=== PATIENT | male | born 1960 | race Caucasian/White ===

== ENCOUNTER → 2018-02-05 | Outpatient (CLI) | payer OTHER | END | disposition home or self-care (01) | LOC: SURG 09:32 | PROVIDERS: ATTEND Anesthesiology Pain Medicine | DX: M47.892 Other spondylosis, cervical region (principal) | CPT/HCPCS: 99214 ==

== ENCOUNTER → 2018-04-02 | Outpatient (CLI) | payer OTHER ==
[~2018-04-02] MED LIST: BUPIVACAINE MPF 0.25% 30 ML VIAL. ONE; LIDOCAINE 1% PF 30 ML VIAL. ONE
== END | disposition home or self-care (01) ==
LOC: SURG 08:31
PROVIDERS: ATTEND Anesthesiology Pain Medicine
DX: M47.812 Spondylosis without myelopathy or radiculopathy, cervical region (principal); I10 Essential (primary) hypertension; M19.90 Unspecified osteoarthritis, unspecified site; G47.30 Sleep apnea, unspecified; Z87.01 Personal history of pneumonia (recurrent); Z90.49 Acquired absence of other specified parts of digestive tract; Z98.890 Other specified postprocedural states; Z79.899 Other long term (current) drug therapy
CPT/HCPCS: 64490; 64491; 64492; J2001; J3490

== ENCOUNTER → 2020-09-26 | Day surgery (SDC) | payer OTHER ==
[~2020-09-26] MED LIST changes: +DEXAMETHASONE SOD PHOS 10 MG/ML VIAL. ONE; +DEXAMETHASONE SOD PHOS 4 MG/ML VIAL. ONE; +LIDOCAINE 1% Multi-Dose 20 ML VIAL. ONE
[2020-09-26 12:55] VITALS: BP 155/92
== END | disposition home or self-care (01) ==
LOC: SURG 12:05
PROVIDERS: ATTEND Anesthesiology
DX: M47.814 Spondylosis without myelopathy or radiculopathy, thoracic region (principal); M12.88 Other specific arthropathies, not elsewhere classified, other specified site; G47.30 Sleep apnea, unspecified; I10 Essential (primary) hypertension; M79.10 Myalgia, unspecified site; Z87.01 Personal history of pneumonia (recurrent); Z98.890 Other specified postprocedural states; Z90.49 Acquired absence of other specified parts of digestive tract
CPT/HCPCS: 64490; 64491; J1100; J3490

== ENCOUNTER → 2021-07-11 | Day surgery (SDC) | payer OTHER ==
[2021-07-11 11:08] VITALS: BP 152/81
== END | disposition home or self-care (01) ==
LOC: SURG 10:57
PROVIDERS: ATTEND Anesthesiology
DX: M47.812 Spondylosis without myelopathy or radiculopathy, cervical region (principal); G47.30 Sleep apnea, unspecified; I10 Essential (primary) hypertension; M19.90 Unspecified osteoarthritis, unspecified site; M17.10 Unilateral primary osteoarthritis, unspecified knee; M47.814 Spondylosis without myelopathy or radiculopathy, thoracic region; M79.10 Myalgia, unspecified site; Z87.01 Personal history of pneumonia (recurrent); Z79.899 Other long term (current) drug therapy; Z98.890 Other specified postprocedural states
CPT/HCPCS: 99204; G0463

== ENCOUNTER → 2021-09-25 | Day surgery (SDC) | payer OTHER ==
[~2021-09-25] MED LIST changes: +BUPIVACAINE MPF 0.25% 10 ML VIAL. ONE; -BUPIVACAINE MPF 0.25% 30 ML VIAL. ONE; -DEXAMETHASONE SOD PHOS 10 MG/ML VIAL. ONE; -DEXAMETHASONE SOD PHOS 4 MG/ML VIAL. ONE; -LIDOCAINE 1% Multi-Dose 20 ML VIAL. ONE
[2021-09-25 11:14] VITALS: BP 135/85
== END | disposition home or self-care (01) ==
LOC: SURG 10:20
PROVIDERS: ATTEND Anesthesiology
DX: M47.814 Spondylosis without myelopathy or radiculopathy, thoracic region (principal); G47.30 Sleep apnea, unspecified; I10 Essential (primary) hypertension; M19.90 Unspecified osteoarthritis, unspecified site; M17.10 Unilateral primary osteoarthritis, unspecified knee; M79.10 Myalgia, unspecified site; M47.812 Spondylosis without myelopathy or radiculopathy, cervical region; Z98.890 Other specified postprocedural states; Z87.01 Personal history of pneumonia (recurrent); Z79.899 Other long term (current) drug therapy; Z90.49 Acquired absence of other specified parts of digestive tract
CPT/HCPCS: 64490; 64491; A4209; A4657; A4930; J3490; 64492